=== PATIENT | female | born 1995 | race Caucasian/White ===

== ENCOUNTER → 2020-05-09 09:00 | Outpatient (BNVA) | payer BC, SELFPAY | PROVIDERS: Family Provider Nurse Practitioner Family; PCP Family Medicine; Visit Provider Nurse Practitioner Psychiatric/Mental Health | DX: F41.9 Anxiety disorder, unspecified (principal); F33.41 Major depressive disorder, recurrent, in partial remission; F15.11 Other stimulant abuse, in remission | CPT/HCPCS: 99212 ==

== ENCOUNTER → 2020-10-20 10:07 | Outpatient (BNVA) | payer OTHER, SELFPAY | PROVIDERS: Family Provider Nurse Practitioner Family; PCP Family Medicine; Visit Provider Nurse Practitioner Psychiatric/Mental Health | DX: F41.9 Anxiety disorder, unspecified (principal); F33.41 Major depressive disorder, recurrent, in partial remission; F15.11 Other stimulant abuse, in remission; Z03.89 Encounter for observation for other suspected diseases and conditions ruled out | CPT/HCPCS: 99214 ==

== ENCOUNTER 2022-06-03 02:44 | Emergency (ER) | payer OTHER, SELFPAY ==
[2022-06-03 02:52] VITALS: BP 158/100; PULSE 88; RESP 18; TEMP 36.9; O2SAT 99; BMI 39.9
[2022-06-03] MEDS: acetaminophen 500 mg Tablet 1000 MG PO (03:15)
[2022-06-03 03:20] VITALS: BP 158/100; PULSE 88; RESP 18; TEMP 36.9; O2SAT 99
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
[2022-06-03 04:05] VITALS: BP 145/80; PULSE 81; RESP 18; TEMP 36.9; O2SAT 100
== END 2022-06-03 04:06 | disposition home or self-care (01) ==
PROVIDERS: Emergency Provider Emergency Medicine
DX: S06.0X0A Concussion without loss of consciousness, initial encounter (principal); S00.83XA Contusion of other part of head, initial encounter; Y04.2XXA Assault by strike against or bumped into by another person, initial encounter; Y92.239 Unspecified place in hospital as the place of occurrence of the external cause; Y99.0 Civilian activity done for income or pay; Z87.891 Personal history of nicotine dependence
CPT/HCPCS: 99283

== ENCOUNTER 2023-01-31 21:45 | Emergency (ER) | payer BC, MEDICAID, SELFPAY ==
--- NOTE | 2023-01-31 21:53 | ECG_ITS ---
[facility] Test Date: 2023-01-31 Pat Name: Lilia Patton Department: Room: Gender: Female Workday Director: : 1995 Requested By: Jim Hunt Order Number: [id number] Shepherd MD: Faith Ulloa M.D. Measurements Intervals [place] Rate: 121 P: 48 GA: 159 QRS: 13 QRSD: 80 T: 21 QT: 311 QTc: 443 Interpretive Statements SINUS TACHYCARDIA MINIMAL VOLTAGE CRITERIA FOR LVH, CONSIDER NORMAL VARIANT [MEETS CRITERIA IN ONE OF: R(aVL), S(V1), R(V5), R(V5/V6)+S(V1)] ABNORMAL RHYTHM ECG Compared to ECG 04/03/2019 05:45:55 Sinus rhythm no longer present Electronically Signed On 02-02-2023 6:50:31 CDT by Faith Ulloa M.D. [id number]
--- NOTE | 2023-01-31 22:02 | XRR_ITS ---
PROCEDURE INFORMATION: Exam: XR Chest Exam date and time: 01/31/2023 10:18 PM Age: 27 years old Clinical indication: Pain; Chest pressure; Additional info: Cp TECHNIQUE: Imaging protocol: Radiologic exam of the chest. Views: 1 view. COMPARISON: CR XR chest 1V [id number] 04/02/2019 10:38 PM FINDINGS: Lungs: Unremarkable. No consolidation. Pleural spaces: Unremarkable. No pleural effusion. No pneumothorax. Heart/Mediastinum: Unremarkable. No cardiomegaly. Bones/joints: Unremarkable. XR/XR chest 1V portable [id number] IMPRESSION: No acute findings.
--- NOTE | 2023-01-31 22:12 | W.ED.CHESTPA ---
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 Denies any shortness of breath denies any cough or fever denies any abdominal pain. Associated symptoms: Reports palpitations; Deny abdominal pain, dyspnea, fever(s), nausea or vomiting Review of Systems Const: Denies: fever(s), chills or body aches ENMT: Denies: throat pain Card: Reports: chest pain and palpitations Resp: Denies: dyspnea GI: Denies: abdominal pain, nausea, vomiting or diarrhea : Denies: dysuria Musc: Denies: neck pain or back pain Skin/Breast: Denies: rash Neuro: Denies: headache(s) PFSH ED PFSH: Medical History Amphetamine abuse in remission Social History Smoking and tobacco status: former smoker Physical Exam Const: COMMON NORMALS: no acute distress, patient oriented x3 and healthy appearing HENMT: COMMON NORMALS: normocephalic and atraumatic HEAD & SCALP: normocephalic and atraumatic Neck/C-Spine: COMMON NORMALS: full ROM and supple Chest: COMMONS NORMALS: normal inspection of the chest and normal palpation of entire chest wall Resp: COMMON NORMALS: normal respiratory effort, No retractions, No use of accessory muscles and clear to auscultation bilaterally AUSCULTATION: clear to auscultation bilaterally Cardio: COMMON NORMALS: regular rhythm and No murmurs present (Cardio) RATE: tachycardic RHYTHM: regular rhythm GI: COMMON NORMALS: Normal to inspection, nondistended, normoactive bowel sounds present, Soft to palpation, non-tender and no masses PALPATION: Yes Soft to palpation Extremity: COMMON NORMALS: normal to inspection and full ROM Neuro: COMMON NORMALS: patient oriented x3, moves all extremities and no focal motor deficits Psych: COMMON NORMALS: mental status grossly normal, Normal thought process present and cooperative THOUGHT PROCESS: Normal thought process present Skin: COMMON NORMALS: no rashes or lesions noted and no wounds GENERAL SKIN EXAM: no rashes or lesions noted Course Vital Signs: Vital signs: Vital Signs Pulse Rate 100 01/31/23 23:30 Respiratory Rate 22 H 01/31/23 23:30 Blood Pressure 156/110 01/31/23 23:30 Pulse Oximetry 98 01/31/23 23:30 MDM - Chest Pain Medical Decision Making Patient presents for chest pains atypical in nature her troponin and EKG x-ray are all normal D-dimer is negative no signs of dissection or pulmonary embolism she feels improved here she is stable for discharge she is to follow-up with PCP and return if worsening. Medical Records I reviewed the patient's medical records. Lab Data I reviewed the patient's lab results. 01/31/23 22:25 01/31/23 22:25 Radiology Impressions Chest X-Ray 01/31/23 22:02 IMPRESSION: No acute findings. Laboratory Results WBC 10.3 10^3/uL (4.0-10.0) H 01/31/23 22:25 RBC 5.15 10^6/uL (4.1-5.3) 01/31/23 22:25 Hgb 11.1 g/dL (11.5-15.3) L 01/31/23 22:25 Hct 37.8 % (37.0-47.0) 01/31/23 22: MCV 73.4 fl (81-99) L 01/31/23 22:25 MCH 21.6 pg (28.0-34.0) L 01/31/23 22: MCHC 29.4 g/dL (30.0-36.0) L 01/31/23 22: RDW 16.2 % (12.1-15.1) H 01/31/23 22:25 Plt Count 327 10^3/cmm (130-400) 01/31/23 22:25 MPV 11.3 fL (7.4-10.4) H 01/31/23 22:25 Neut % (Auto) 71.3 % 01/31/23 22:25 Lymph % (Auto) 21.0 % 01/31/23 22:25 [place] % (Auto) 4.5 % 01/31/23 22:25 Eos % (Auto) 1.5 % 01/31/23 22:25 Baso % (Auto) 0.8 % 01/31/23 22:25 Neut # (Auto) 7.36 10^3/uL (1.8-7.7) 01/31/23 22: Lymph # (Auto) 2.2 10^3/uL (0.8-4.8) 01/31/23 22: [place] # (Auto) 0.5 10^3/uL (0.2-0.9) 01/31/23 22: Eos # (Auto) 0.2 10^3/uL (0.0-0.8) 01/31/23: Baso # (Auto) 0.1 10^3/uL (0.0-0.1) 01/31/23 22: Nucleated RBC % (auto) 0 % 01/31/23: Nucleated RBCs # 0.0 /100WBC 01/31/23: D-Dimer <= 0.27 ug/mIFEU (0-0.59) 01/31/23 22:25 Sodium 139 mmol/L (136-145) 01/31/23 22: Potassium 4.1 mmol/L (3.5-5.1) 01/31/23 22: Chloride 103 mmol/L (98-107) 01/31/23 22: Carbon Dioxide 23 mmol/L (22-29) 01/31/23 22: Anion Gap 17.1 (5-19) 01/31/23 22: BUN 15 mg/dL (6-20) 01/31/23 22: Creatinine 0.7 mg/dL (0.5-0.9) 01/31/23 22: GFR Calculation 102.0 mL/min (90-130) 01/31/23 22:25 Glucose 93 mg/dL (65-115) 01/31/23 22:25 Calculated Osmolality 289 mOsm/kg (285-295) 01/31/23 22: Calcium 9.7 mg/dL (8.5-10.5) 01/31/23 22:25 Total Bilirubin 0.2 mg/dL (0.15-1.2) 01/31/23 22:25 AST 23 U/L (0-32) 01/31/23 22:25 ALT 28 U/L (0-33) 01/31/23 22:25 Alkaline Phosphatase 92 U/L (35-105) 01/31/23 22:25 Troponin T Baseline 6 ng/L (0-10) 01/31/23 22:25 NT-Pro-B Natriuret Pep 36 pg/mL (0-125) 01/31/23 22:25 Total Protein 7.3 g/dL (6.6-8.7) 01/31/23 22:25 Albumin 4.4 g/dL (3.5-5.2) 01/31/23 22:25 Globulin 2.9 g/dL (1.3-4.6) 01/31/23 22:25 HCG, Qual Negative (Negative) 01/31/23 22:25 EKG Data EKG 1: I personally reviewed and interpreted this EKG as follows: EKG interpretation date: 01/31/23 EKG interpretation time: 21:53 Interpretation: sinus tach hr 121 no t or t wave abnormalities qrs 80 qtc 383 Discharge Plan Discharge Patient Disposition: Home Clinical Impression: Chest pain Condition: Stable Prescriptions: No Action hydroxyzine pamoate [Vistaril] 25 mg capsule 25 mg PO BID PRN (Reason: anxiety) Qty: 60 0RF Rx Instructions: Take 1 capsule by mouth, twice daily, if needed for anxiety fluoxetine [Prozac] 20 mg capsule 20 mg PO QAM Qty: 30 1RF Rx Instructions: take one capsule by mouth every morning amoxicillin 875 mg tablet 875 mg PO BID 10 Days Qty: 20 0RF ibuprofen 600 mg tablet 600 mg PO Q8H PRN (Reason: pain) Qty: 30 0RF Discharge Orders: Discharge ED (Routine); Ordered 02/01/23 Ordered By: Jim Hunt Discharge Diet: Advance as tolerated Discharge Activity: Resume usual activity Patient Instructions: Chest Pain (ED) Coding Level of Care Code ED Engagement Director for Tho Hahn
[2023-01-31] MEDS: LORazepam 2 mg/mL INJ 1 mL 1 MG IVP (22:26)
[2023-01-31 22:30] VITALS: BP 227/161; PULSE 120; RESP 16; O2SAT 99
[2023-01-31] MEDS: labetalol 5 mg/mL SDV 20mL 10 MG IVP (22:36)
[2023-01-31 23:00] VITALS: BP 161/103; PULSE 102; RESP 20; O2SAT 98
[2023-01-31 23:13] VITALS: BP 159/99; PULSE 95; RESP 16; O2SAT 95
[2023-01-31 23:13] LABS: Basophils # 0.1 10^3/uL (0.0-0.1); Basophils % 0.8 %; Eosinophils # 0.2 10^3/uL (0.0-0.8); Eosinophils % 1.5 %; Hematocrit 37.8 % (37.0-47.0); Hemoglobin 11.1 g/dL (11.5-15.3); Lymphocytes # 2.2 10^3/uL (0.8-4.8); Mean Corpuscular HGB Conc 29.4 g/dL (30.0-36.0); Mean Corpuscular Hemoglobin 21.6 pg (28.0-34.0); Mean Corpuscular Volume 73.4 fl (81-99); Mean Platelet Volume 11.3 fL (7.4-10.4); Monocytes # 0.5 10^3/uL (0.2-0.9); Monocytes % 4.5 %; Neutrophils # 7.36 10^3/uL (1.8-7.7); Neutrophils % 71.3 %; Nucleated Red Blood Cells % 0 %; Platelet Count 327 10^3/cmm (130-400); Red Blood Count 5.15 10^6/uL (4.1-5.3); Red Cell Distribution Width 16.2 % (12.1-15.1); White Blood Count 10.3 10^3/uL (4.0-10.0)
[2023-01-31 23:23] LABS: HCG, Serum Qual Negative (Negative)
[2023-01-31 23:30] VITALS: BP 156/110; PULSE 100; RESP 22; O2SAT 98
[2023-01-31 23:39] LABS: Troponin(5th) Baseline 6 ng/L (0-10)
[2023-01-31 23:46] LABS: Alanine Aminotransferase 28 U/L (0-33); Albumin Level 4.4 g/dL (3.5-5.2); Alkaline Phosphatase 92 U/L (35-105); Anion Gap 17.1 (5-19); Aspartate Amino Transferase 23 U/L (0-32); Blood Urea Nitrogen 15 mg/dL (6-20); Calcium 9.7 mg/dL (8.5-10.5); Carbon Dioxide 23 mmol/L (22-29); Chloride 103 mmol/L (98-107); Globulin 2.9 g/dL (1.3-4.6); Glucose 93 mg/dL (65-115); NT Pro B Type Natriuretic Pept 36 pg/mL (0-125); Osmolality Calculated 289 mOsm/kg (285-295); Potassium 4.1 mmol/L (3.5-5.1); Sodium 139 mmol/L (136-145); Total Bilirubin 0.2 mg/dL (0.15-1.2); Total Protein 7.3 g/dL (6.6-8.7)
[2023-01-31] MEDS: ketorolac 30 mg/mL INJ 15 MG IVP (23:57)
[2023-02-01 00:08] LABS: D Dimer <= 0.27 ug/mIFEU (0-0.59)
[2023-02-01 00:28] VITALS: BP 156/110; PULSE 100; RESP 22; O2SAT 98
--- NOTE | 2023-02-13 13:29 | DCPLANNER ---
TCM called patient due to no primary care physician - Patient sees Eleno Mojica at [facility]
== END 2023-02-01 00:30 | disposition home or self-care (01) ==
PROVIDERS: Emergency Provider Emergency Medicine; PCP Nurse Practitioner
DX: R07.9 Chest pain, unspecified (principal); Z87.891 Personal history of nicotine dependence
CPT/HCPCS: 71045; 80053; 83880; 84484; 84703; 85025; 85378; 93005; 96374; 96375; 99285; J1885; J2060; J3490